=== PATIENT | female | born 1985 | race Caucasian/White ===

== ENCOUNTER → 2018-03-26 | Outpatient (CLI) | payer OTHER ==
[2014-01-28 13:14] VITALS: BMI 33.6
[~2018-03-26] MED LIST: HYDR-317 PO; IBU800 PO; PREN-85 PO
--- NOTE | 2018-03-26 09:33 | RADIOLOGY IMAGING REPORT ---
FAC[place] [facility] [place]IENT NAME: Laurie Hurtado : 1985 MR: [id number] V: [id number] EXAM DATE: ORDERING PHYSICIAN: IRENE MURPHY TECHNOLOGIST: Location: [facility] Patient: Laurie Hurtado : 1985 Visit/Account:[id number] Date of Sevice: 03/26/2018 GALLBLADDER HISTORY: right upper quad abdominal pain COMPARISON: None. FINDINGS: Gallbladder: Unremarkable; no stones or sludge. Liver: Negative. Common duct: Normal, 3.9 mm diameter. Pancreas: Partially obscured by bowel, visualized aspects unremarkable. Right kidney: Unremarkable as imaged measuring 9.2 cm in length Upper abdominal aorta and IVC: Patent. Ascites: None visualized. IMPRESSION: Unremarkable right upper quadrant ultrasound other than partial obscuration of the pancreas due to ov erlying bowel gas Report Dictated By: Nalini Smith MD at 03/26/2018 9:27 AM Report E-Signed By: Nalini Smith MD at 03/26/2018 9:29 AM WSN:[email or web address]
== END ==
LOC: US 01:45
PROVIDERS: ATTEND Obstetrics & Gynecology
DX: R10.11 Right upper quadrant pain (principal)
CPT/HCPCS: 76705

== ENCOUNTER → 2019-01-11 | Outpatient (CLI) | payer OTHER ==
[2014-01-28 13:14] VITALS: BMI 33.6
[~2019-01-11] MED LIST changes: +BUPR300T56 PO; +FLU60SYR36 IM
--- NOTE | 2019-01-11 11:26 | RADIOLOGY IMAGING REPORT ---
FACILITY: [facility] - [place] PATIENT NAME: Laurie Hurtado : 1985 MR: [id number] V: [id number] EXAM DATE: ORDERING PHYSICIAN: IRENE MURPHY TECHNOLOGIST: Location: [facility] - [place] Patient: Laurie Hurtado : 1985 Visit/Account:[id number] Date of Sevice: 01/11/2019 Transvaginal pelvic ultrasound. HISTORY: Irregular uterine bleeding. COMPARISON: None. The uterus measures 7.7 cm in sagittal length. Multiple small nabothian cysts are present in the low er uterine segment and along the internal cervical os. The endometrial cavity is empty. The endomet rial stripe is homogeneous measuring 10 mm in thickness. No free fluid. The adnexal vessels are unr emarkable. The urinary bladder is empty. The right ovary measures 2.4 cm in length. The left ovary measures 3.6 cm in length. Several small follicles are scattered in both ovaries. Ovarian blood fl ow is normal bilaterally. IMPRESSION: Negative uterus and ovaries. Report Dictated By: Jakob Manning MD at 01/11/2019 11:19 AM Report E-Signed By: Jakob Manning MD at 01/11/2019 11:22 AM WSN:[email or web address]
== END ==
LOC: RAD 08:53
PROVIDERS: ATTEND Obstetrics & Gynecology
DX: N92.6 Irregular menstruation, unspecified (principal)